=== PATIENT | female | born 1980 | race Caucasian/White ===

== ENCOUNTER 2020-11-22 17:07 | Outpatient (REF) | payer MEDICAID, SELFPAY ==
[2020-11-23 12:03] LABS: COVID-19 RT-PCR UVMMC Result Negative (Negative)
== END 2020-11-22 17:08 | disposition home or self-care (01) ==
LOC: NCHCN 17:07
PROVIDERS: PCP Internal Medicine; Visit Provider Internal Medicine
DX: Z20.822 Contact with and (suspected) exposure to COVID-19 (principal)
CPT/HCPCS: U0003